=== PATIENT | female | born 1950 | race Caucasian/White ===

== ENCOUNTER 2017-12-30 16:36 | Emergency (ER) | payer MEDICARE ==
[2017-12-30 16:46] VITALS: RESP 18; TEMP 97.8
[2017-12-30] MEDS ORDERED: LABETALOL 5 MG/ML VIAL MDV IVP STA (16:46)
--- NOTE | 2017-12-30 17:06 | CT ---
EXAMINATION TYPE: CODE STROKE: CT brain wo contra DATE OF EXAM: 12/30/2017 HISTORY: Possible stroke CT DLP: 963.4 mGycm. Automated Exposure Control for Dose Reduction was Utilized. TECHNIQUE: CT scan of the head is performed without contrast. COMPARISON: None. FINDINGS: There is no acute intracranial hemorrhage or midline shift identified. There is diffuse v entricular and sulcal prominence consistent with diffuse age-related cerebral atrophy. There is low- attenuation in the periventricular white matter nonspecific but most likely on basis of product of ch ronic small vessel ischemic change. The globes are intact and the visualized sinuses are clear. Vasc ular calcification distal internal carotid arteries is present bilaterally. IMPRESSION: No acute intracranial hemorrhage or midline shift. There is mild to moderate diffuse ag e-related cerebral atrophy and suspected chronic small vessel ischemic change noted. If clinical concern for acute stroke persists further investigation with MRI study may be warranted.
[2017-12-30 17:13] LABS: Glucose,Whole Blood 133 mg/dL (75-99)
--- NOTE | 2017-12-30 17:25 | ED ---
Neuro HPI - General Chief Complaint: Neuro Symptoms/Deficit Stated Complaint: Poss.stroke Time Seen by Provider: 12/30/17 16:36 Source: patient, RN notes reviewed Mode of arrival: EMS Limitations: no limitations - History of Present Illness Is the patient presenting with stroke symptoms?: Yes Last Known Well Date: 12/30/17 Last Known Well Time: 14:00 Initial Comments: This is a 67-year-old female with a benign past history other than smoking cigarettes for many years who presents by EMS with complaints of the onset around 2 PM of some difficulty with speech. She is found have a blood pressure 280/140 and 2 manual attempts at taking it. A glucose of 122. She initially thought she was getting better but after arrival was found have worsening speech also some slight right facial asymmetry and right upper and lower extremity ataxia. She denies any headache fevers chills nausea vomiting sweats blurry vision or other symptoms. No prior history of strokes no known history of heart or lung disease. - Related Data Home Medications: Home Medications Medication Instructions Recorded Confirmed No Known Home Medications 12/30/17 12/30/17 Allergies/Adverse Reactions: Allergies Allergy/AdvReac Type Severity Reaction Status Date / Time No Known Allergies Allergy Verified 12/30/17 17:56 Review of Systems ROS Statement: Those systems with pertinent positive or pertinent negative responses have been documented in the HPI. ROS Other: All systems not noted in ROS Statement are negative. General Exam - General Exam Comments Initial Comments: This is a well-developed well-nourished awake alert oriented 3 female who does demonstrate some facial asymmetry in the right. Her speech is slightly slurred. Limitations: no limitations General appearance: alert, anxious Head exam: Present: atraumatic, normocephalic, normal inspection Eye exam: Present: normal appearance, PERRL, EOMI. Absent: scleral icterus, conjunctival injection, periorbital swelling ENT exam: Present: normal exam, mucous membranes moist Neck exam: Present: normal inspection. Absent: tenderness, meningismus, lymphadenopathy Respiratory exam: Present: normal lung sounds bilaterally. Absent: respiratory distress, wheezes, rales, rhonchi, stridor Cardiovascular Exam: Present: normal rhythm, tachycardia, normal heart sounds. Absent: systolic murmur, diastolic murmur, rubs, gallop, clicks GI/Abdominal exam: Present: soft, normal bowel sounds. Absent: distended, tenderness, guarding, rebound, rigid Extremities exam: Present: normal inspection, normal capillary refill. Absent: full ROM, tenderness, pedal edema, joint swelling, calf tenderness Back exam: Present: normal inspection Neurological exam: Present: alert, oriented X3, motor sensory deficit Psychiatric exam: Present: normal affect, normal mood Skin exam: Present: warm, dry, intact, normal color. Absent: rash Stroke MDM - Lab Data Result diagrams: 12/30/17 17:18 12/30/17 17:18 Lab Results 12/30/17 12/30/17 12/30/17 Range/Units 16:50 17:11 17:18 WBC (3.8-10.6) k/uL RBC (3.80-5.40) m/uL Hgb (11.4-16.0) gm/dL Hct (34.0-46.0) % MCV (80.0-100.0) fL MCH (25.0-35.0) pg MCHC (31.0-37.0) g/dL RDW (11.5-15.5) % Plt Count (150-450) k/uL Neutrophils % % Lymphocytes % % Monocytes % % Eosinophils % % Basophils % % Neutrophils # (1.3-7.7) k/uL Lymphocytes # (1.0-4.8) k/uL Monocytes # (0-1.0) k/uL Eosinophils # (0-0.7) k/uL Basophils # (0-0.2) k/uL PT (9.0-12.0) sec INR (<1.2) APTT (22.0-30.0) sec Sodium (137-145) mmol/L Potassium (3.5-5.1) mmol/L Chloride (98-107) mmol/L Carbon Dioxide (22-30) mmol/L Anion Gap mmol/L BUN (7-17) mg/dL Creatinine (0.52-1.04) mg/dL Est GFR (CKD-EPI)AfAm (>60 ml/min/1.73 sqM) Est GFR (CKD-EPI)NonAf (>60 ml/min/1.73 sqM) Glucose (74-99) mg/dL POC Glucose (mg/dL) 133 H (75-99) mg/dL POC Glu Band Saw Runner ID Moses, Quinton Calcium (8.4-10.2) mg/dL Magnesium (1.6-2.3) mg/dL Total Bilirubin (0.2-1.3) mg/dL AST (14-36) U/L ALT (9-52) U/L Alkaline Phosphatase (38-126) U/L Total Creatine Kinase 36 (30-135) U/L CK-MB (CK-2) 0.5 (0.0-2.4) ng/mL CK-MB (CK-2) Rel Index 1.4 Troponin I <0.012 (0.000-0.034) ng/mL Total Protein (6.3-8.2) g/dL Albumin (3.5-5.0) g/dL Blood Type A Positive Blood Type Confirm Blood Type Recheck CABO Indicated Antibody Screen NEGATIVE Spec Expiration Date 01/02/2018 - 234912/30/17 12/30/17 12/30/17 Range/Units 17:18 17:18 17:18 WBC 10.0 (3.8-10.6) k/uL RBC 5.63 H (3.80-5.40) m/uL Hgb 15.5 (11.4-16.0) gm/dL Hct 48.3 H (34.0-46.0) % MCV 85.8 (80.0-100.0) fL MCH 27.5 (25.0-35.0) pg MCHC 32.0 (31.0-37.0) g/dL RDW 14.5 (11.5-15.5) % Plt Count 347 (150-450) k/uL Neutrophils % 84 % Lymphocytes % 9 % Monocytes % 4 % Eosinophils % 0 % Basophils % 1 % Neutrophils # 8.4 H (1.3-7.7) k/uL Lymphocytes # 0.9 L (1.0-4.8) k/uL Monocytes # 0.4 (0-1.0) k/uL Eosinophils # 0.0 (0-0.7) k/uL Basophils # 0.1 (0-0.2) k/uL PT 10.2 (9.0-12.0) sec INR 1.0 (<1.2) APTT 23.6 (22.0-30.0) sec Sodium 136 L (137-145) mmol/L Potassium 4.2 (3.5-5.1) mmol/L Chloride 101 (98-107) mmol/L Carbon Dioxide 22 (22-30) mmol/L Anion Gap 13 mmol/L BUN 11 (7-17) mg/dL Creatinine 0.67 (0.52-1.04) mg/dL Est GFR (CKD-EPI)AfAm >90 (>60 ml/min/1.73 sqM) Est GFR (CKD-EPI)NonAf >90 (>60 ml/min/1.73 sqM) Glucose 134 H (74-99) mg/dL POC Glucose (mg/dL) (75-99) mg/dL POC Glu Band Saw Runner ID Calcium 9.6 (8.4-10.2) mg/dL Magnesium 1.8 (1.6-2.3) mg/dL Total Bilirubin 0.4 (0.2-1.3) mg/dL AST 20 (14-36) U/L ALT 21 (9-52) U/L Alkaline Phosphatase 101 (38-126) U/L Total Creatine Kinase (30-135) U/L CK-MB (CK-2) (0.0-2.4) ng/mL CK-MB (CK-2) Rel Index Troponin I (0.000-0.034) ng/mL Total Protein 6.4 (6.3-8.2) g/dL Albumin 4.0 (3.5-5.0) g/dL Blood Type Blood Type Confirm Blood Type Recheck Antibody Screen Spec Expiration Date 12/30/17 Range/Units 17:18 WBC (3.8-10.6) k/uL RBC (3.80-5.40) m/uL Hgb (11.4-16.0) gm/dL Hct (34.0-46.0) % MCV (80.0-100.0) fL MCH (25.0-35.0) pg MCHC (31.0-37.0) g/dL RDW (11.5-15.5) % Plt Count (150-450) k/uL Neutrophils % % Lymphocytes % % Monocytes % % Eosinophils % % Basophils % % Neutrophils # (1.3-7.7) k/uL Lymphocytes # (1.0-4.8) k/uL Monocytes # (0-1.0) k/uL Eosinophils # (0-0.7) k/uL Basophils # (0-0.2) k/uL PT (9.0-12.0) sec INR (<1.2) APTT (22.0-30.0) sec Sodium (137-145) mmol/L Potassium (3.5-5.1) mmol/L Chloride (98-107) mmol/L Carbon Dioxide (22-30) mmol/L Anion Gap mmol/L BUN (7-17) mg/dL Creatinine (0.52-1.04) mg/dL Est GFR (CKD-EPI)AfAm (>60 ml/min/1.73 sqM) Est GFR (CKD-EPI)NonAf (>60 ml/min/1.73 sqM) Glucose (74-99) mg/dL POC Glucose (mg/dL) (75-99) mg/dL POC Glu Band Saw Runner ID Calcium (8.4-10.2) mg/dL Magnesium (1.6-2.3) mg/dL Total Bilirubin (0.2-1.3) mg/dL AST (14-36) U/L ALT (9-52) U/L Alkaline Phosphatase (38-126) U/L Total Creatine Kinase (30-135) U/L CK-MB (CK-2) (0.0-2.4) ng/mL CK-MB (CK-2) Rel Index Troponin I (0.000-0.034) ng/mL Total Protein (6.3-8.2) g/dL Albumin (3.5-5.0) g/dL Blood Type Blood Type Confirm A Positive Blood Type Recheck Antibody Screen Spec Expiration Date - NIH Stroke Scale 1a. Level of Consciousness: (0) alert 1b. LOC Questions: (2) answers no questions correctly 1c. LOC Commands: (1) performs 1 task correctly 2. Best Gaze: (0) normal 3. Visual: (0) no visual loss 4. Facial Palsy: (2) partial paralysis 5a. Motor Arm Left: (0) no drift 5b. Motor Arm Right: (1) drift 6a. Motor Leg Left: (0) no drift 6b. Motor Leg Right: (1) drift 7. Limb Ataxia: (0) absent 8. Sensory: (0) normal 9. Best Language: (2) severe aphasia 10. Dysarthria: (1) mild/moderate dysarthria - Thrombolytic Inclusion/Exclusion Thrombolytic Inclusion Criteria: Ischemic Stroke Onset< 3h - Medical Decision Making I did review the imaging and reports no evidence of acute bleed the patient was a TPA candidate. Patient will be transferred to [facility]. I did discuss the case initially with Dr. Grajeda in the emergency physician Dr. Clayton who is agreed to set the patient transfer. I did discuss case with the patient and her family who were present. - EKG Data -: EKG Interpreted by Me EKG shows normal: sinus rhythm (Sinus rhythm of 90. Interval 170 QRS duration 72 QT since QTC 394/41 nonspecific anterior changes by atrial enlargement. Artifact is present) Past Medical History Past Medical History: No Reported History Additional Past Medical History / Comment(s): last seen doctor over 30+ yrs History of Any Multi-Drug Resistant Organisms: None Reported Past Surgical History: No Surgical Hx Reported Past Psychological History: No Psychological Hx Reported Smoking Status: Current every day smoker Past Alcohol Use History: None Reported Past Drug Use History: None Reported Course Vital Signs 12/30/17 12/30/17 12/30/17 16:43 17:02 17:18 Temperature 97.8 F Pulse Rate 132 H 90 88 Respiratory 18 18 18 Rate Blood Pressure 248/141 224/97 229/99 O2 Sat by Pulse 98 94 L 97 Oximetry 12/30/17 12/30/17 12/30/17 17:33 17:48 18:03 Temperature Pulse Rate 88 87 96 Respiratory 18 18 18 Rate Blood Pressure 178/85 194/86 216/90 O2 Sat by Pulse 96 96 97 Oximetry 12/30/17 18:18 Temperature Pulse Rate 90 Respiratory 18 Rate Blood Pressure 216/91 O2 Sat by Pulse 94 L Oximetry - Reevaluation(s) Reevaluation #1: 12/30/17 18:37 The patient initially scored and H of 6 on initial examination and evaluation this later was recently scored and found to be a 10. Reevaluation #2: 12/30/17 18:39 The patient was evaluated by Dr. Grajeda. The patient is a candidate for TPA and will be given a TPA. I did discuss the TPA with the patient including risks. Critical Care Time Critical Care Time: Yes Critical Care Time: 43 minutes of critical care time which includes monitoring the EMS run and discussed with paramedics. History physical labs. X-rays and CTs and patient. Evaluation of the above. Several re-evaluations the patient response to therapy and discussed with the neuro interventional S as well as ER doctor. Documentation above attempt review of old charting and discussed with paramedics. Disposition Clinical Impression: Cerebrovascular accident Disposition: OTHER INSTITUTION NOT DEFINED Condition: Serious Is patient prescribed a controlled substance at d/c from ED?: No Referrals: None,Stated [Primary Care Provider] - 1-2 days - Out of Hospital Transfer - Req. Specs Out of Hospital Transfer - Requested Specifics: Other Emergency Center
[2017-12-30 17:31] LABS: Basophils # (A) 0.1 k/uL (0-0.2); Basophils % (A) 1 %; Eosinophils % (A) 0 %; HCT 48.3 % (34.0-46.0); HGB 15.5 gm/dL (11.4-16.0); Lymphocytes # (A) 0.9 k/uL (1.0-4.8); Lymphocytes % (A) 9 %; MCH 27.5 pg (25.0-35.0); MCV 85.8 fL (80.0-100.0); Mean Platelet Volume 7.2; Monocytes # (A) 0.4 k/uL (0-1.0); Monocytes % (A) 4 %; Neutrophils # (A) 8.4 k/uL (1.3-7.7); Neutrophils % (A) 84 %; Platelet Count 347 k/uL (150-450); RBC 5.63 m/uL (3.80-5.40); RDW 14.5 % (11.5-15.5)
[2017-12-30] MEDS ORDERED: ALTEPLASE IV STA (17:32)
[2017-12-30] MEDS ORDERED: ALTEPLASE BOLUS 6 MG in EMPTY SYRINGE 1 SYR IV STA (17:32)
[2017-12-30] MEDS ORDERED: tPA (Alteplase) PER PHARMACY 1 EACH MISC MISCELLANE PRN (17:33)
[2017-12-30 17:41] LABS: Partial Thromboplastin Time 23.6 sec (22.0-30.0); Prothrombin Time 10.2 sec (9.0-12.0)
[2017-12-30 17:45] LABS: Creatine Kinase 36 U/L (30-135)
[2017-12-30 17:49] LABS: ALT 21 U/L (9-52); AST 20 U/L (14-36); Alkaline Phosphatase 101 U/L (38-126); Anion Gap 13 mmol/L; Blood Urea Nitrogen 11 mg/dL (7-17); Calcium 9.6 mg/dL (8.4-10.2); Carbon Dioxide 22 mmol/L (22-30); Chloride 101 mmol/L (98-107); Glucose 134 mg/dL (74-99); Magnesium 1.8 mg/dL (1.6-2.3); Potassium 4.2 mmol/L (3.5-5.1); Sodium 136 mmol/L (137-145); Total Bilirubin 0.4 mg/dL (0.2-1.3); Total Protein 6.4 g/dL (6.3-8.2)
[2017-12-30 17:58] LABS: Creatine Kinase MB 0.5 ng/mL (0.0-2.4); Troponin I <0.012 ng/mL (0.000-0.034)
--- NOTE | 2017-12-30 18:46 | ED ---
Medical Decision Making - Medical Decision Making Patient had labile blood pressure and did require IV medication which was initiated. - Lab Data Result diagrams: 12/30/17 17:18 12/30/17 17:18 Lab Results 12/30/17 12/30/17 12/30/17 Range/Units 16:50 17:11 17:18 WBC (3.8-10.6) k/uL RBC (3.80-5.40) m/uL Hgb (11.4-16.0) gm/dL Hct (34.0-46.0) % MCV (80.0-100.0) fL MCH (25.0-35.0) pg MCHC (31.0-37.0) g/dL RDW (11.5-15.5) % Plt Count (150-450) k/uL Neutrophils % % Lymphocytes % % Monocytes % % Eosinophils % % Basophils % % Neutrophils # (1.3-7.7) k/uL Lymphocytes # (1.0-4.8) k/uL Monocytes # (0-1.0) k/uL Eosinophils # (0-0.7) k/uL Basophils # (0-0.2) k/uL PT (9.0-12.0) sec INR (<1.2) APTT (22.0-30.0) sec Sodium (137-145) mmol/L Potassium (3.5-5.1) mmol/L Chloride (98-107) mmol/L Carbon Dioxide (22-30) mmol/L Anion Gap mmol/L BUN (7-17) mg/dL Creatinine (0.52-1.04) mg/dL Est GFR (CKD-EPI)AfAm (>60 ml/min/1.73 sqM) Est GFR (CKD-EPI)NonAf (>60 ml/min/1.73 sqM) Glucose (74-99) mg/dL POC Glucose (mg/dL) 133 H (75-99) mg/dL POC Glu Rubber Mixer ID Quinton Lopes Calcium (8.4-10.2) mg/dL Magnesium (1.6-2.3) mg/dL Total Bilirubin (0.2-1.3) mg/dL AST (14-36) U/L ALT (9-52) U/L Alkaline Phosphatase (38-126) U/L Total Creatine Kinase 36 (30-135) U/L CK-MB (CK-2) 0.5 (0.0-2.4) ng/mL CK-MB (CK-2) Rel Index 1.4 Troponin I <0.012 (0.000-0.034) ng/mL Total Protein (6.3-8.2) g/dL Albumin (3.5-5.0) g/dL Blood Type A Positive Blood Type Confirm Blood Type Recheck CABO Indicated Antibody Screen NEGATIVE Spec Expiration Date 01/02/2018234912/30/17 12/30/17 12/30/17 Range/Units 17:18 17:18 17:18 WBC 10.0 (3.8-10.6) k/uL RBC 5.63 H (3.80-5.40) m/uL Hgb 15.5 (11.4-16.0) gm/dL Hct 48.3 H (34.0-46.0) % MCV 85.8 (80.0-100.0) fL MCH 27.5 (25.0-35.0) pg MCHC 32.0 (31.0-37.0) g/dL RDW 14.5 (11.5-15.5) % Plt Count 347 (150-450) k/uL Neutrophils % 84 % Lymphocytes % 9 % Monocytes % 4 % Eosinophils % 0 % Basophils % 1 % Neutrophils # 8.4 H (1.3-7.7) k/uL Lymphocytes # 0.9 L (1.0-4.8) k/uL Monocytes # 0.4 (0-1.0) k/uL Eosinophils # 0.0 (0-0.7) k/uL Basophils # 0.1 (0-0.2) k/uL PT 10.2 (9.0-12.0) sec INR 1.0 (<1.2) APTT 23.6 (22.0-30.0) sec Sodium 136 L (137-145) mmol/L Potassium 4.2 (3.5-5.1) mmol/L Chloride 101 (98-107) mmol/L Carbon Dioxide 22 (22-30) mmol/L Anion Gap 13 mmol/L BUN 11 (7-17) mg/dL Creatinine 0.67 (0.52-1.04) mg/dL Est GFR (CKD-EPI)AfAm >90 (>60 ml/min/1.73 sqM) Est GFR (CKD-EPI)NonAf >90 (>60 ml/min/1.73 sqM) Glucose 134 H (74-99) mg/dL POC Glucose (mg/dL) (75-99) mg/dL POC Glu Rubber Mixer ID Calcium 9.6 (8.4-10.2) mg/dL Magnesium 1.8 (1.6-2.3) mg/dL Total Bilirubin 0.4 (0.2-1.3) mg/dL AST 20 (14-36) U/L ALT 21 (9-52) U/L Alkaline Phosphatase 101 (38-126) U/L Total Creatine Kinase (30-135) U/L CK-MB (CK-2) (0.0-2.4) ng/mL CK-MB (CK-2) Rel Index Troponin I (0.000-0.034) ng/mL Total Protein 6.4 (6.3-8.2) g/dL Albumin 4.0 (3.5-5.0) g/dL Blood Type Blood Type Confirm Blood Type Recheck Antibody Screen Spec Expiration Date 12/30/17 Range/Units 17:18 WBC (3.8-10.6) k/uL RBC (3.80-5.40) m/uL Hgb (11.4-16.0) gm/dL Hct (34.0-46.0) % MCV (80.0-100.0) fL MCH (25.0-35.0) pg MCHC (31.0-37.0) g/dL RDW (11.5-15.5) % Plt Count (150-450) k/uL Neutrophils % % Lymphocytes % % Monocytes % % Eosinophils % % Basophils % % Neutrophils # (1.3-7.7) k/uL Lymphocytes # (1.0-4.8) k/uL Monocytes # (0-1.0) k/uL Eosinophils # (0-0.7) k/uL Basophils # (0-0.2) k/uL PT (9.0-12.0) sec INR (<1.2) APTT (22.0-30.0) sec Sodium (137-145) mmol/L Potassium (3.5-5.1) mmol/L Chloride (98-107) mmol/L Carbon Dioxide (22-30) mmol/L Anion Gap mmol/L BUN (7-17) mg/dL Creatinine (0.52-1.04) mg/dL Est GFR (CKD-EPI)AfAm (>60 ml/min/1.73 sqM) Est GFR (CKD-EPI)NonAf (>60 ml/min/1.73 sqM) Glucose (74-99) mg/dL POC Glucose (mg/dL) (75-99) mg/dL POC Glu Rubber Mixer ID Calcium (8.4-10.2) mg/dL Magnesium (1.6-2.3) mg/dL Total Bilirubin (0.2-1.3) mg/dL AST (14-36) U/L ALT (9-52) U/L Alkaline Phosphatase (38-126) U/L Total Creatine Kinase (30-135) U/L CK-MB (CK-2) (0.0-2.4) ng/mL CK-MB (CK-2) Rel Index Troponin I (0.000-0.034) ng/mL Total Protein (6.3-8.2) g/dL Albumin (3.5-5.0) g/dL Blood Type Blood Type Confirm A Positive Blood Type Recheck Antibody Screen Spec Expiration Date Disposition Clinical Impression: Cerebrovascular accident, Uncontrolled hypertension Disposition: OTHER INSTITUTION NOT DEFINED Condition: Serious Referrals: None,Stated [Primary Care Provider] - 1-2 days - Out of Hospital Transfer - Req. Specs Out of Hospital Transfer - Requested Specifics: Other Emergency Center
[2017-12-30 18:59] VITALS: PULSE 86
[2017-12-30 19:06] VITALS: BP 192/78
--- NOTE | 2017-12-30 19:09 | CT ---
EXAMINATION TYPE: CODE STROKE: CTA head neck DATE OF EXAM: 12/30/2017 HISTORY: Possible acute stroke, altered mental status. COMPARISON: Same day CT CT DLP: 205.3 mGycm. Automated Exposure Control for Dose Reduction was Utilized. TECHNIQUE: CTA scan of the head and neck are performed with IV Contrast, patient injected with 65 mL of Isovue 370, axial images are obtained, coronal and sagittal reformatted images are reviewed. Thre e-D reconstructed images are created on an independent workstation and reviewed. FINDINGS: Carotid/Vascular Structures: Mild to moderate peripheral calcified plaque is seen in the aortic arch. There is mild to moderate peripheral plaque in the right brachiocephalic artery. There is moderate p eripheral plaque in the left subclavian artery. There is more focal prominent noncalcified plaque in the left subclavian artery with lumen diameter narrowed to roughly 4.6 x 3.4 mm axial image 18 with n ative diameter of 9.2 x 8.8 mm axial image 19 just above this. Computer estimate lumen diameter narro wed to 3.5 mm and calculates 34% diameter narrowing with 66% area narrowing. Grossly there is felt mo re significant stenosis, estimate closer to 70% diameter narrowing from expected [place] lumen. There is moderate to severe eccentric predominantly noncalcified plaque anteriorly in the left subclavian a rtery near left first rib axial image 25 in which second significant stenosis cannot be excluded. Right common carotid artery shows normal origin from right brachiocephalic artery. There is mild to m oderate mixed plaque in the proximal segment. There is severe plaque in mid to distal segments with s evere narrowing near axial image 36 series 4. Lumen diameter is narrowed to approximately 2.4 x 1.8 m m axial image 37 with reconstitution to 5.9 mm superior to this axial image 40. Computer shows narrow ing up to 0.7 mm raw data image 350. Degree of stenosis is estimated thus approaching 90%. There is m oderate to severe eccentric calcified plaque distal to this. There is severe calcified plaque at rai tid bulb level extending into proximal internal and external carotid arteries. Lumen diameter is narr owed to at least 2.9 mm from 7.7 mm at this level. Accurate evaluation suboptimal due to marked calci fied plaque. Stenosis at least 65% likely greater approaching 80% is present. There is patent externa l carotid artery with mild narrowing. There is no significant plaque in the remainder of proximal to mid right internal carotid artery. There is moderate calcified plaque supraclinoid segment without si gnificant stenosis. There is mild to moderate peripheral plaque in the proximal to mid left common carotid artery. There is more moderate to severe mixed plaque in the mid to distal left common carotid artery. There is sev ere calcified plaque at left carotid bulb extending into proximal internal and external carotid arter ies. Presence of severe calcified plaque makes accurate evaluation suboptimal. There is patent finished goods stock clerk al carotid artery without significant plaque or stenosis. There is abrupt occlusion of the left inter nal carotid artery shortly after its origin seen best axial images 53 through 56. There is nonvisuali zed opacified mid to distal left internal carotid artery. There is calcified plaque supraclinoid segm ent. There is presumed retrograde flow into the distal supraclinoid segment from patent eagle of Cristian lis. There is dominant right vertebral artery. There is irregular nodular lumen to the smaller caliber dis wendy left vertebral artery, cannot exclude some linear low dense areas axial image 69 and 71 for refer ence. Vertebral dissection cannot be excluded. There is hypoplastic left posterior communicating rock ry. There is filling of left P2 segment due to patent posterior communicating artery. There is patent right posterior communicating artery. Images of the anterior circulation show patent anterior communicating artery. No significant stenosis or aneurysmal change is seen. Other: There is mild to moderate multilevel spurring and disc space narrowing throughout the cervical spine. There is mild to moderate underlying emphysematous change and visualized upper lungs. IMPRESSION: 1. 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 2. Hemodynamically significant stenosis in the left subclavian artery estimated 70% diameter narrowin g. Additional significant stenosis towards the axilla cannot be excluded. 3. Hemodynamic placed significant stenosis distal right common carotid artery estimated approaching 9 0%. Significant stenosis right carotid bulb at least 60% estimated closer to 80%. 4. Abnormal suspicious appearance to the left vertebral artery with small caliber and irregular lumen , consider spasm and/or dissection. 5. No aneurysmal change at level of eagle of [place]. Case discussed with ordering ER physician via telephone at time of dictation.
== END 2017-12-30 19:18 | disposition other institution (70) ==
LOC: EC 16:36
DX: I63.9 Cerebral infarction, unspecified (principal); I10 Essential (primary) hypertension; F17.210 Nicotine dependence, cigarettes, uncomplicated
CPT/HCPCS: 99291 ×2; 96365 ×2; 96375 ×2; 37195 ×2; 36415; 93005; 86900; 86901; 80053; 82550; 82553; 83735; 84484; 85025; 85610; 85730; 86850; 70496; 70450; 70498; J2997; Q9967